=== PATIENT | male | born 1990 | race American Indian/Alaskan Native ===

== ENCOUNTER 2021-04-15 03:33 | Emergency (ER) | payer SELFPAY ==
[2021-04-15] MEDS ORDERED: ONDANSETRON 4 MG ODT TAB PO PRN (04:18)
[2021-04-15] MEDS ORDERED: NALOXONE 0.4 MG/1 ML INJ IV PRN (04:18)
[2021-04-15] MEDS ORDERED: LORazepam 2 MG/ML VIAL IM PRN (04:18)
[2021-04-15] MEDS ORDERED: HALOPERIDOL LACTATE 5 MG/1 ML INJ IM PRN (04:18)
--- NOTE | 2021-04-15 04:19 | Emergency Department Report ---
ED General Adult HPI - General Chief complaint: Medical Clearance Stated complaint: I took Wellbutrin and I drink alcohol Time Seen by Provider: 04/15/21 04:16 Source: patient, EMS (Verbal report received from emergency medical services. EMS documentation not available at time of chart dictation ), RN notes reviewed Mode of arrival: Stretcher Limitations: Altered Mental Status - History of Present Illness Initial comments: The patient was evaluated in the emergency department for symptoms described in the history of present illness. He/she was evaluated in the context of the global COVID-19 pandemic, which necessitated consideration that the patient might be at risk for infection with the virus that causes COVID-19. Institutional protocols and algorithms that pertain to the evaluation of patients at risk for COVID-19 are in a state of rapid change based on information released by regulatory bodies including the CDC and federal and state organizations. These policies and algorithms were followed during the patient's care in the emergency department. Please note that these policies, procedures and recommendations changed on a rapid basis. The patient is a 38-year-old gentleman. He is not known to myself. He is brought to the hospital by emergency medical services. History obtained mostly from EMS. Patient denies physical pain. As per patient and EMS, patient found in car, uncertain if running, with a report of consumption of alcohol and Wellbutrin. He does not know what time these consumptive events took place. Patient states he is not homicidal or suicidal. The patient has his 6-year-old son in the car with him. His son denies physical pain and complaints. His son does not currently a patient in the emergency r oom. Patient is not currently accompanied by an adult at this time. He does not know who called 911. -: unknown - Related Data Allergies Allergy/AdvReac Type Severity Reaction Status Date / Time No Known Allergies Allergy Verified 04/15/21 04:42 ED Review of Systems ROS: Stated complaint: WEAKNESS Other details as noted in HPI Comment: Unobtainable due to pts medical conditions ED Physical Exam - General General appearance: lethargic - Head Head exam: Present: atraumatic, normocephalic - Eye Eye exam: Present: normal appearance, EOMI. Absent: nystagmus - ENT ENT exam: Present: normal exam, normal orophraynx, mucous membranes moist, normal external ear exam - Neck Neck exam: Present: normal inspection, full ROM. Absent: tenderness, meningismus - Respiratory Respiratory exam: Present: normal lung sounds bilaterally. Absent: respiratory distress, wheezes, rales, rhonchi, stridor, decreased breath sounds - Cardiovascular Cardiovascular Exam: Present: regular rate, normal rhythm, normal heart sounds. Absent: bradycardia, tachycardia, irregular rhythm, systolic murmur, diastolic murmur, rubs, gallop - GI/Abdominal GI/Abdominal exam: Present: soft. Absent: distended, tenderness, guarding, rebound, rigid, pulsatile mass - Rectal Rectal exam: Present: deferred - Extremities Exam Extremities exam: Present: normal inspection, full ROM, other (2+ pulses noted in the bilateral upper and lower extremities. There is no palpable cord. negative Homans sign. Muscular compartments are soft. The pelvis is stable.). Absent: pedal edema, calf tenderness - Back Exam Back exam: Present: normal inspection. Absent: tenderness, CVA tenderness (R), CVA tenderness (L), paraspinal tenderness, vertebral tenderness - Neurological Exam Neurological exam: Present: altered (Patient is sleepy but arousable. Moves 4 extremities. No facial droop. Tongue midline) - Psychiatric Psychiatric exam: Present: flat affect. Absent: suicidal ideation - Skin Skin exam: Present: warm, dry, intact, normal color. Absent: rash ED Course Vital Signs 04/15/21 04/15/21 04/15/21 04:16 08:00 08:06 Temperature 98 F Pulse Rate 77 52 L Respiratory 18 16 16 Rate Blood Pressure 155/82 Blood Pressure 146/88 [Left] O2 Sat by Pulse 100 100 100 Oximetry 04/15/21 04/15/21 04/15/21 08:15 08:31 08:45 Temperature Pulse Rate Respiratory 14 15 19 Rate Blood Pressure 146/88 146/88 146/88 Blood Pressure [Left] O2 Sat by Pulse 96 100 97 Oximetry 04/15/21 04/15/21 04/15/21 09:01 09:15 09:31 Temperature Pulse Rate Respiratory 13 10 L 15 Rate Blood Pressure 146/88 146/88 146/88 Blood Pressure [Left] O2 Sat by Pulse 100 96 98 Oximetry 04/15/21 04/15/21 04/15/21 09:45 10:01 10:15 Temperature Pulse Rate Respiratory 12 18 12 Rate Blood Pressure 146/88 146/88 146/88 Blood Pressure [Left] O2 Sat by Pulse 100 100 100 Oximetry 04/15/21 04/15/21 04/15/21 10:31 10:45 11:01 Temperature Pulse Rate Respiratory 15 12 15 Rate Blood Pressure 146/88 146/88 146/88 Blood Pressure [Left] O2 Sat by Pulse 94 97 99 Oximetry 04/15/21 04/15/21 04/15/21 11:15 11:31 11:33 Temperature Pulse Rate 50 L Respiratory 11 L 16 15 Rate Blood Pressure 146/88 146/88 Blood Pressure 145/70 [Left] O2 Sat by Pulse 100 100 97 Oximetry - Reevaluation(s) Reevaluation #1: 04/15/21 06:28 Differential diagnosis, including but not limited to: Overdose, toxic encephalopathy, metabolic encephalopathy, pneumonia, urinary tract infection Assessment and plan: 30-year-old gentleman who appears to be clinically intoxicated, with a report of concomitant alcohol and Wellbutrin ingestion, at an uncertain time. We do not know exact time of ingestion, and he is somnolent but arousable. Charcoal contraindicated, given that he is an aspiration risk. Laboratory studies demonstrate mild anion gap acidosis, and acidotic venous pH. He also has a leukocytosis of uncertain clinical significance. Contacted [facility], and discussed the case with Derik. We discussed the patient's history, physical, laboratory studies, and current clinical status. Admission is recommended for supportive care given history of welbutrin ingestion. Wellbutrin may cause delayed onset seizures. I have ordered additional laboratory studies Including arterial blood gas, lactic acid, serum osmolality, and carboxyhemoglobin level. Have also ordered noncontrast CT scan of the brain, and x-ray of the chest. Care will be transferred to the oncoming ER physician Dr Kerline Jerome, to follow- up on these studies, and arrange for admission to the hospitalist service. Of note, nursing team to contact child protective services/ dfacs, given that patient had a minor in the car with him. 04/17/21 19:13 ED Medical Decision Making - Lab Data Result diagrams: 04/15/21 05:22 04/15/21 05:22 Vital Signs 04/15/21 04:16 Temperature 98 F Pulse Rate 77 Respiratory 18 Rate Blood Pressure 155/82 O2 Sat by Pulse 100 Oximetry Lab Results 04/15/21 04/15/21 04/15/21 Range/Units 05:22 05:22 05:22 WBC 17.4 H (4.5-11.0) K/mm3 RBC 5.25 H (3.65-5.03) M/mm3 Hgb 16.2 H (11.8-15.2) gm/dl Hct 46.8 H (35.5-45.6) % MCV 89 (84-94) fl MCH 31 (28-32) pg MCHC 35 H (32-34) % RDW 14.4 (13.2-15.2) % Plt Count 243 (140-440) K/mm3 Lymph % (Auto) 7.6 L (13.4-35.0) % [place] % (Auto) 7.1 (0.0-7.3) % Eos % (Auto) 0.1 (0.0-4.3) % Baso % (Auto) 0.2 (0.0-1.8) % Lymph # (Auto) 1.3 (1.2-5.4) K/mm3 [place] # (Auto) 1.2 H (0.0-0.8) K/mm3 Eos # (Auto) 0.0 (0.0-0.4) K/mm3 Baso # (Auto) 0.0 (0.0-0.1) K/mm3 Seg Neutrophils % 85.0 H (40.0-70.0) % Seg Neutrophils # 14.8 H (1.8-7.7) K/mm3 VBG pH (7.320-7.420) Sodium 141 (137-145) mmol/L Potassium 3.6 (3.6-5.0) mmol/L Chloride 100.9 (98-107) mmol/L Carbon Dioxide 24 (22-30) mmol/L Anion Gap 20 mmol/L BUN 9 (9-20) mg/dL Creatinine 1.3 (0.8-1.3) mg/dL Estimated GFR > 60 ml/min BUN/Creatinine Ratio 7 % Glucose 154 H (75-100) mg/dL Calcium 9.7 (8.4-10.2) mg/dL Magnesium (1.7-2.3) mg/dL Total Bilirubin 0.50 (0.1-1.2) mg/dL AST 22 (5-40) units/L ALT 13 (7-56) units/L Alkaline Phosphatase 71 (35-129) units/L Total Creatine Kinase (55-170) units/L Total Protein 8.0 (6.3-8.2) g/dL Albumin 5.0 (3.9-5) g/dL Albumin/Globulin Ratio 1.7 % Salicylates 1.0 L (2.8-20.0) mg/dL Acetaminophen (10.0-30.0) ug/mL Plasma/Serum Alcohol (0-0.07) % 04/15/21 04/15/21 04/15/21 Range/Units 05:22 05:22 05:22 WBC (4.5-11.0) K/mm3 RBC (3.65-5.03) M/mm3 Hgb (11.8-15.2) gm/dl Hct (35.5-45.6) % MCV (84-94) fl MCH (28-32) pg MCHC (32-34) % RDW (13.2-15.2) % Plt Count (140-440) K/mm3 Lymph % (Auto) (13.4-35.0) % [place]go % (Auto) (0.0-7.3) % Eos % (Auto) (0.0-4.3) % Baso % (Auto) (0.0-1.8) % Lymph # (Auto) (1.2-5.4) K/mm3 [place] # (Auto) (0.0-0.8) K/mm3 Eos # (Auto) (0.0-0.4) K/mm3 Baso # (Auto) (0.0-0.1) K/mm3 Seg Neutrophils % (40.0-70.0) % Seg Neutrophils # (1.8-7.7) K/mm3 VBG pH (7.320-7.420) Sodium (137-145) mmol/L Potassium (3.6-5.0) mmol/L Chloride (98-107) mmol/L Carbon Dioxide (22-30) mmol/L Anion Gap mmol/L BUN (9-20) mg/dL Creatinine (0.8-1.3) mg/dL Estimated GFR ml/min BUN/Creatinine Ratio % Glucose (75-100) mg/dL Calcium (8.4-10.2) mg/dL Magnesium 2.20 (1.7-2.3) mg/dL Total Bilirubin (0.1-1.2) mg/dL AST (5-40) units/L ALT (7-56) units/L Alkaline Phosphatase (35-129) units/L Total Creatine Kinase 242 H (55-170) units/L Total Protein (6.3-8.2) g/dL Albumin (3.9-5) g/dL Albumin/Globulin Ratio % Salicylates (2.8-20.0) mg/dL Acetaminophen 5.0 L (10.0-30.0) ug/mL Plasma/Serum Alcohol < 0.01 (0-0.07) % 04/15/21 Range/Units 05:22 WBC (4.5-11.0) K/mm3 RBC (3.65-5.03) M/mm3 Hgb (11.8-15.2) gm/dl Hct (35.5-45.6) % MCV (84-94) fl MCH (28-32) pg MCHC (32-34) % RDW (13.2-15.2) % Plt Count (140-440) K/mm3 Lymph % (Auto) (13.4-35.0) % [place]go % (Auto) (0.0-7.3) % Eos % (Auto) (0.0-4.3) % Baso % (Auto) (0.0-1.8) % Lymph # (Auto) (1.2-5.4) K/mm3 [place] # (Auto) (0.0-0.8) K/mm3 Eos # (Auto) (0.0-0.4) K/mm3 Baso # (Auto) (0.0-0.1) K/mm3 Seg Neutrophils % (40.0-70.0) % Seg Neutrophils # (1.8-7.7) K/mm3 VBG pH 7.264 L (7.320-7.420) Sodium (137-145) mmol/L Potassium (3.6-5.0) mmol/L Chloride (98-107) mmol/L Carbon Dioxide (22-30) mmol/L Anion Gap mmol/L BUN (9-20) mg/dL Creatinine (0.8-1.3) mg/dL Estimated GFR ml/min BUN/Creatinine Ratio % Glucose (75-100) mg/dL Calcium (8.4-10.2) mg/dL Magnesium (1.7-2.3) mg/dL Total Bilirubin (0.1-1.2) mg/dL AST (5-40) units/L ALT (7-56) units/L Alkaline Phosphatase (35-129) units/L Total Creatine Kinase (55-170) units/L Total Protein (6.3-8.2) g/dL Albumin (3.9-5) g/dL Albumin/Globulin Ratio % Salicylates (2.8-20.0) mg/dL Acetaminophen (10.0-30.0) ug/mL Plasma/Serum Alcohol (0-0.07) % - EKG Data -: EKG Interpreted by Me Rate: bradycardia - EKG Data When compared to previous EKG there are: previous EKG unavailable 04/15/21 06:10 The EKG is interpreted at 04: 59 Sinus rhythm, rate 47 bpm, bradycardia. Normal axis, normal intervals, high left ventricular maintenance. Abnormal EKG. Not a STEMI. No prior for comparison. - Radiology Data Radiology results: pending Critical care attestation.: If time is entered above; I have spent that time in minutes in the direct care of this critically ill patient, excluding procedure time. ED Disposition Clinical Impression: Transient alteration of awareness Overdose Qualifiers: Encounter type: initial encounter Disposition: HOME / SELF CARE / HOMELESS Is pt being admited?: No Does the pt Need Aspirin: No Condition: Stable Instructions: Accidental Drug Poisoning, Adult Additional Instructions: Drink plenty water. Do not take any medications or drink alcohol with children in the car. Follow-up with your regular doctor. If you have concerns or problems, please return at any point. Follow-up as directed by psychiatric services. Professional and Agency Contacts To help [facility] (10/09) [place] Crisis Line: Suicide Prevention Line: Crisis Text Line: Text START to [phone] Emergency: 911 Outpatient COMMUNITY Behavioral Health Resources: [place]: [facility] [address], [place] [address] [place]: [facility] [address] [place] [address] Saturday thru Saturday - 8am - 5pm Call to schedule an assessment for mental health and substance abuse ki vinson [facility] Address: [address] [place] [address] Saturday thru Saturday- 7am-2pm [facility] Address: [address] [place] [address] Saturday thru Saturday: 8:30AM-5PM Referrals: PRIMARY CARE, [Primary Care Provider] - 3-5 Days
[2021-04-15 05:42] LABS: Basophils % (Auto) 0.2 % (0.0-1.8); Eosinophils % (Auto) 0.1 % (0.0-4.3); Hematocrit 46.8 % (35.5-45.6); Hemoglobin 16.2 gm/dl (11.8-15.2); Lymphocytes # (Auto) 1.3 K/mm3 (1.2-5.4); Lymphocytes % (Auto) 7.6 % (13.4-35.0); Mean Corpuscular HGB Conc 35 % (32-34); Mean Corpuscular Volume 89 fl (84-94); Monocytes # (Auto) 1.2 K/mm3 (0.0-0.8); Monocytes % (Auto) 7.1 % (0.0-7.3); Platelet Count 243 K/mm3 (140-440); Red Blood Count 5.25 M/mm3 (3.65-5.03); Red Cell Distribution Width 14.4 % (13.2-15.2)
[2021-04-15 05:56] LABS: Alanine Aminotransferase 13 units/L (7-56); BUN/Creatinine Ratio 7; Blood Urea Nitrogen 9 mg/dL (9-20); Calcium 9.7 mg/dL (8.4-10.2); Hemolysis Index 11
--- NOTE | 2021-04-15 06:37 | XRay Report ---
CHEST 1 VIEW INDICATION: ams. COMPARISON: None. FINDINGS: Support devices: None. Heart: Normal. Lungs/Pleura: No acute pulmonary or pleural findings. IMPRESSION: 1. No acute findings. Signer Name: Indra Cason MD Signed: 04/15/2021 6:33 AM Workstation Name: [id number]
--- NOTE | 2021-04-15 06:58 | Cat Scan Report ---
CT HEAD WITHOUT CONTRAST INDICATION: ams. TECHNIQUE: All CT scans at this location are performed using CT dose reduction for ALARA by means of automated e xposure control. COMPARISON: None available. FINDINGS: HEMORRHAGE: None. EXTRA-AXIAL SPACES: Normal in size and morphology for the patient's age. VENTRICULAR SYSTEM: Normal in size and morphology for the patient's age. BRAIN PARENCHYMA: No acute findings. MIDLINE SHIFT OR HERNIATION: None. ORBITS: Normal as visualized. SOFT TISSUES OF HEAD: Normal. CALVARIUM: Normal. VISUALIZED PARANASAL SINUSES AND MASTOID AIR CELLS: Air-fluid level right maxillary sinus. ADDITIONAL FINDINGS: None. IMPRESSION: 1. No acute intracranial abnormality. 2. Right maxillary sinusitis. Signer Name: Indra Cason MD Signed: 04/15/2021 6:53 AM Workstation Name: [id number]
--- NOTE | 2021-04-15 07:34 | Emergency Department Report ---
Blank Doc - Documentation Documentation: 0600-I assumed care of this patient. Labs and radiographic studies are pending. 0935-labs have been noted. IV fluids have been ordered. Etiology for leukocytosis is not known. I believe this is more of a demargination and stress reaction. He does not have evidence of infectious pathology. Patient will be seen by psychiatric services. He is not acutely intoxicated from alcohol. He is clinically sober. 1013 has been started. 1130-psychiatric evaluation is complete. Patient is not actively suicidal or homicidal. He had been medically cleared and was discharged. I did have a discussion with the patient. He states that he was not trying to kill himself. He states that he would not do that in front of his child. We have discussed using medications that will cause of sedation while driving especially with your child in the vehicle.
[2021-04-15 09:19] LABS: Benzodiazepines Screen,Urine Negative; Bilirubin,Urine NEG (Negative); Blood,Urine NEG (Negative); Color,Urine Yellow (Yellow); Methadone Screen,Urine Negative; Mucus,Urine 1+ /HPF; Opiate Screen,Urine Negative; Urobilinogen,Urine < 2.0 mg/dL (<2.0)
[2021-04-15 09:30] LABS: Amphetamine Screen,Urine Positive; Cannabinoid Screen,Urine Positive; Cocaine Screen,Urine Positive
--- NOTE | 2021-04-15 09:34 | Electrocardiograph Report ---
[facility] Test Date: 2021-04-15 Test Time: 04:59:37 Pat Name: JEFFREY HERNANDEZ Department: Room: Gender: M Betting Clerk: GLORIA : 1990 Requested By: JILL PATINO Order Number: [id number] Reading MD: El Osuna Measurements Intervals [place] Rate: 47 P: 19 MD: 159 QRS: 19 QRSD: 91 T: 1 QT: 429 QTc: 375 Interpretive Statements Sinus bradycardia Atrial premature complex No previous ECG available for comparison Electronically Signed On 04-15-2021 9:33:44 EST by El Osuna
[2021-04-15] MEDS ORDERED: SODIUM CHLORIDE 0.9% 1000 ML 1,000 ML IV ONE (09:37)
--- NOTE | 2021-04-15 11:09 | Consultation ---
History of Present Illness - Reason for Consult Consult date: 04/15/21 Reason for consult: MHE - History of Present Psychiatric Illness The patient was seen today. He is calm, cooperative and polite during the evaluation. The patient says he was at a gas station and starting feeling a little woozy. He says he had drank a tall seltzer alcoholic drink, and remembered that he also took his wellbutrin. The patient says he's unsure if that what made him feel sick. The patient denies SI/HI. He says "wait, where did that come from. I've never been suicidal. That is a big misunderstanding." He says the person at the register called 911. The patient says he does have a h istory of depression and takes wellbutrin. He also admits to using cocaine. He denies amphetamine use, but his urine was positive. The patient hallucinations of any kind. PAST PSYCHIATRIC HISTORY Diagnoses: Depression Suicide attempts or Self-harm behavior: Denies Prior psychiatric hospitalizations: Denies Substance Abuse history: Cocaine, amphetamines Previous psychiatric medications tried: wellbutrin Outpatient treatment: Yes PAST MEDICAL HISTORY: none reported Family Psychiatric History: None reported or documented SOCIAL HISTORY Marital Status: single Living Arrangements: roommate Employment Status: Employed Access to guns/weapons: none reported Education: high school grad History of Abuse: none reported Legal History: none reported REVIEW OF SYSTEMS Constitutional: Negative for weight loss ENT: Negative for stridor Respiratory: Negative for cough or hemoptysis All other systems reviewed and are negative MENTAL STATUS EXAMINATION General Appearance and Behavior: Age appropriate, good hygiene, wearing appropriate clothes, calm, cooperative and polite Cooperation: Participating/engaged Psychomotor Behavior: unremarkable and within normal limits Mood: a lot better Affect and affective range: Euthymic Thought Process: goal directed Thought Content: None Speech: Normal volume, Regular rate and rhythm Suicidal Ideation: Denies Homicidal Ideation: Denies Hallucinations: Denies Delusions: None elicited Impulse Control: Normal Insight and Judgment: Limited insight and judgment Memory: Normal Attention: Attentive Orientation: Alert, oriented Assessment and Plan (3) Polysubstance Use with Substance Induced Mood Disorder Current Visit: Yes Status: Acute Treatment Plan d/c 1013 Continue home meds Risks, benefits and alternatives of medications discussed with the patient, questions answered and consent obtained from patient. PSYCHOTHERAPY: Supportive psychotherapy provided MEDICAL: Per primary team DELIRIUM PRECAUTIONS: Please re-orient patient frequently, keep lights on during the day, and minimize benzodiazepines and opiates as these medications could worsen patient's confusion. [employer] MACHINE OPERATOR: DISPOSITION: Do not recommend acute inpatient psychiatric hospitalization at this time The patient to abstain from all illicit drug use The environmental emergencies planner to give the patient all necessary outpatient resources, including drug and alcohol rehab He is to follow up with outpatient in 7 to 14 days upon discharge FOLLOW-UP: Will sign off Thank you for the consult. Please contact with any questions and/or concerns. Case staffed with Dr. Smalls Medications and Allergies Allergies Allergy/AdvReac Type Severity Reaction Status Date / Time No Known Allergies Allergy Verified 04/15/21 04:42 Active Meds: Active Medications Haloperidol Lactate (Haloperidol Lactate 5 Mg/1 Ml Inj) 5 mg IM Q6HR PRN PRN Reason: Agitation Lorazepam (Lorazepam 2 Mg/Ml Vial) 2 mg IM Q4HR PRN PRN Reason: Agitation Naloxone HCl (Naloxone 0.4 Mg/1 Ml Inj) 0.1 mg IV Q2MIN PRN PRN Reason: Res Rate </= 8 or 02 SAT < 92% Ondansetron HCl (Ondansetron 4 Mg Odt Tab) 4 mg PO Q6HR PRN PRN Reason: Nausea Last Admin: 04/15/21 04:48 Dose: 4 mg Mental Status Exam - Vital signs Last Vital Signs Temp 98 F 04/15/21 04:16 Pulse 52 L 04/15/21 08:06 Resp 12 04/15/21 09:45 BP 146/88 04/15/21 09:45 Pulse Ox 100 04/15/21 09:45 Results Result Diagrams: 04/15/21 05:22 04/15/21 05:22 Abnormal lab results 04/15/21 04/15/21 04/15/21 Range/Units 05:22 05:22 05:22 WBC 17.4 H (4.5-11.0) K/mm3 RBC 5.25 H (3.65-5.03) M/mm3 Hgb 16.2 H (11.8-15.2) gm/dl Hct 46.8 H (35.5-45.6) % MCHC 35 H (32-34) % Lymph % (Auto) 7.6 L (13.4-35.0) % [place] # (Auto) 1.2 H (0.0-0.8) K/mm3 Seg Neutrophils % 85.0 H (40.0-70.0) % Seg Neutrophils # 14.8 H (1.8-7.7) K/mm3 POC ABG pCO2 (32.0-48.0) mmHg POC ABG pO2 (83-108) mmHg ABG Oxyhemoglobin (94-98) VBG pH (7.320-7.420) Carboxyhemoglobin (0.5-1.5) Glucose 154 H (75-100) mg/dL Total Creatine Kinase (55-170) units/L Salicylates 1.0 L (2.8-20.0) mg/dL Acetaminophen (10.0-30.0) ug/mL 04/15/21 04/15/21 04/15/21 Range/Units 05:22 05:22 05:22 WBC (4.5-11.0) K/mm3 RBC (3.65-5.03) M/mm3 Hgb (11.8-15.2) gm/dl Hct (35.5-45.6) % MCHC (32-34) % Lymph % (Auto) (13.4-35.0) % [place] # (Auto) (0.0-0.8) K/mm3 Seg Neutrophils % (40.0-70.0) % Seg Neutrophils # (1.8-7.7) K/mm3 POC ABG pCO2 (32.0-48.0) mmHg POC ABG pO2 (83-108) mmHg ABG Oxyhemoglobin (94-98) VBG pH 7.264 L (7.320-7.420) Carboxyhemoglobin (0.5-1.5) Glucose (75-100) mg/dL Total Creatine Kinase 242 H (55-170) units/L Salicylates (2.8-20.0) mg/dL Acetaminophen 5.0 L (10.0-30.0) ug/mL 04/15/21 Range/Units 08:00 WBC (4.5-11.0) K/mm3 RBC (3.65-5.03) M/mm3 Hgb (11.8-15.2) gm/dl Hct (35.5-45.6) % MCHC (32-34) % Lymph % (Auto) (13.4-35.0) % [place] # (Auto) (0.0-0.8) K/mm3 Seg Neutrophils % (40.0-70.0) % Seg Neutrophils # (1.8-7.7) K/mm3 POC ABG pCO2 50.3 H (32.0-48.0) mmHg POC ABG pO2 68.4 L (83-108) mmHg ABG Oxyhemoglobin 90.2 L (94-98) VBG pH (7.320-7.420) Carboxyhemoglobin 3.5 H (0.5-1.5) Glucose (75-100) mg/dL Total Creatine Kinase (55-170) units/L Salicylates (2.8-20.0) mg/dL Acetaminophen (10.0-30.0) ug/mL All other labs normal.
[2021-04-15 11:46] VITALS: BP 146/88
== END 2021-04-15 12:00 | disposition home or self-care (01) ==
LOC: ED 03:33
DX: R40.4 Transient alteration of awareness (principal); Z20.822 Contact with and (suspected) exposure to COVID-19; T50.991A Poisoning by other drugs, medicaments and biological substances, accidental (unintentional), initial encounter; Y92.89 Other specified places as the place of occurrence of the external cause
CPT/HCPCS: 36415; 70450; 71045; 80048; 80053; 80307; 81001; 82140; 82375; 82550; 82805; 83735; 83930; 85025; 87040; 93005; 93010; 96360; 99285; U0003; 80320; J3490; G0480; Q0162